=== PATIENT | female | born 1995 | race American Indian/Alaskan Native ===

== ENCOUNTER 2016-10-10 20:18 | Emergency (ER) | payer SELFPAY ==
[2016-10-10 21:04] VITALS: BP 112/76
--- NOTE | 2016-10-11 01:44 | Emergency Department Report ---
- General Chief Complaint: Upper Respiratory Infection Stated Complaint: FLU SYMPTOMS Time Seen by Provider: 10/11/16 01:37 Source: patient Mode of arrival: Ambulatory Limitations: No Limitations - History of Present Illness Initial Comments: 21-year-old female past medical history smoker presents with 4 days of cough and body aches and sore throat and sneezing. Patient states it is dry cough. Denies any other symptoms. Awake alert and oriented 3, in no acute distress. Patient states she came here because she does not have primary medical doctor MD Complaint: cough, sore throat Severity: moderate - Related Data Previous Rx's Medication Instructions Recorded Last Taken Type Acetaminophen/Codeine 1 tab PO Q6H PRN #20 tab 11/15/14 Unknown Rx [Acetaminophen-Codeine #3 TAB] Doxycycline [Vibramycin CAP] 100 mg PO BID #20 capsule 11/15/14 Unknown Rx Ibuprofen [Motrin] 600 mg PO Q8H PRN #30 tablet 11/15/14 Unknown Rx Naproxen [Naprosyn TAB] 500 mg PO BID PRN #14 tablet 10/11/16 Unknown Rx guaiFENesin/DEXTROMETHORPHAN 10 ml PO Q8H PRN #1 bottle 10/11/16 Unknown Rx [Mucinex Fast-Max Dm Max Liquid] Allergies Allergy/AdvReac Type Severity Reaction Status Date / Time No Known Allergies Allergy Verified 11/15/14 08:56 ED Review of Systems ROS: Stated complaint: FLU SYMPTOMS Other details as noted in HPI Constitutional: denies: chills, fever Eyes: denies: eye pain, eye discharge, vision change ENT: denies: ear pain, throat pain Respiratory: denies: cough, shortness of breath, wheezing Cardiovascular: denies: chest pain, palpitations Endocrine: no symptoms reported Gastrointestinal: denies: abdominal pain, nausea, diarrhea Genitourinary: denies: urgency, dysuria, discharge Musculoskeletal: denies: back pain, joint swelling, arthralgia Skin: denies: rash, lesions Neurological: denies: headache, weakness, paresthesias Psychiatric: denies: anxiety, depression Hematological/Lymphatic: denies: easy bleeding, easy bruising ED Past Medical Hx - Social History Smoking Status: Never Smoker Substance Use Type: None - Medications Home Medications: Home Medications Medication Instructions Recorded Confirmed Last Taken Type Acetaminophen/Codeine 1 tab PO Q6H PRN #20 tab 11/15/14 Unknown Rx [Acetaminophen-Codeine #3 TAB] Doxycycline [Vibramycin CAP] 100 mg PO BID #20 capsule 11/15/14 Unknown Rx Ibuprofen [Motrin] 600 mg PO Q8H PRN #30 tablet 11/15/14 Unknown Rx Naproxen [Naprosyn TAB] 500 mg PO BID PRN #14 tablet 10/11/16 Unknown Rx guaiFENesin/DEXTROMETHORPHAN 10 ml PO Q8H PRN #1 bottle 10/11/16 Unknown Rx [Mucinex Fast-Max Dm Max Liquid] ED Physical Exam - General Limitations: No Limitations General appearance: alert, in no apparent distress - Head Head exam: Present: atraumatic, normocephalic - Eye Eye exam: Present: normal appearance, PERRL, EOMI - ENT ENT exam: Present: mucous membranes moist - Neck Neck exam: Present: normal inspection - Respiratory Respiratory exam: Present: normal lung sounds bilaterally. Absent: respiratory distress - Cardiovascular Cardiovascular Exam: Present: regular rate, normal rhythm. Absent: systolic murmur, diastolic murmur, rubs, gallop - GI/Abdominal GI/Abdominal exam: Present: soft, normal bowel sounds - Extremities Exam Extremities exam: Present: normal inspection - Back Exam Back exam: Present: normal inspection - Neurological Exam Neurological exam: Present: alert, oriented X3, CN II-XII intact, normal gait - Psychiatric Psychiatric exam: Present: normal affect, normal mood - Skin Skin exam: Present: warm, dry, intact, normal color. Absent: rash ED Course Vital Signs 10/10/16 21:01 Temperature 100.1 F H Pulse Rate 107 H Respiratory 22 Rate Blood Pressure 112/76 O2 Sat by Pulse 100 Oximetry ED Medical Decision Making - Medical Decision Making A/P: URI, flulike illness 1-Mucinex when necessary, naproxen when necessary, one time dose Decadron for symptomatic relief of sore throat. Patient tolerating food and liquid by mouth without any difficulty 2-patient referred to primary care 3-I advised patient to remain well-hydrated. Patient advised to return to the ED if she develops fever above 101 Fahrenheit difficulty breathing significant amount of productive cough, inability to tolerate anything by mouth Critical care attestation.: If time is entered above; I have spent that time in minutes in the direct care of this critically ill patient, excluding procedure time. ED Disposition Clinical Impression: Flu-like symptoms URI (upper respiratory infection) Qualifiers: URI type: unspecified viral URI Qualified Code(s): J06.9 - Acute upper respiratory infection, unspecified; B97.89 - Other viral agents as the cause of diseases classified elsewhere Disposition: DISCHARGED TO HOME OR SELFCARE Is pt being admited?: No Does the pt Need Aspirin: No Condition: Stable Instructions: Viral Syndrome (ED), Influenza (ED), Upper Respiratory Infection (ED), Cold Symptoms (ED) Prescriptions: guaiFENesin/DEXTROMETHORPHAN [Mucinex Fast-Max Dm Max Liquid] 10 ml PO Q8H PRN # 1 bottle PRN Reason: Cough Naproxen [Naprosyn TAB] 500 mg PO BID PRN #14 tablet PRN Reason: Sore Throat Referrals: PRIMARY CARE,MD [Primary Care Provider] - 3-5 Days [facility] [place] - 3-5 Days Forms: Work/School Release Form(ED) Time of Disposition: 01:43
[2016-10-11] MEDS ORDERED: DECADRON IM ONE (01:45)
[2016-10-11] MEDS ORDERED: MOTRIN PO ONE (01:45)
== END 2016-10-11 01:45 | disposition home or self-care (01) ==
LOC: ED 20:18
DX: J06.9 Acute upper respiratory infection, unspecified (principal); B97.89 Other viral agents as the cause of diseases classified elsewhere; J11.1 Influenza due to unidentified influenza virus with other respiratory manifestations
CPT/HCPCS: 96372; 99282; J1100